=== PATIENT | female | born 1990 | race African-American/Black ===

== ENCOUNTER 2021-05-11 18:48 | Emergency (ER) | payer OTHER, SELFPAY ==
[2021-05-11 18:54] VITALS: BP 117/74; PULSE 102; RESP 16; TEMP 35.7; O2SAT 100
--- NOTE | 2021-05-11 23:24 | PC.NURSE ---
no answer for room.
== END 2021-05-11 23:45 | disposition left against medical advice (07) ==
DX: Z53.21 Procedure and treatment not carried out due to patient leaving prior to being seen by health care provider (principal)
CPT/HCPCS: 99199

== ENCOUNTER 2025-02-02 15:07 | Emergency (ER) | payer BC, SELFPAY ==
--- OUTSIDE RECORDS SUMMARY | 2025-02-02 15:17 | XMS_ITS | Clinical Summary ---
Author Organization [facility] [employer] Address [address] [place] [address] Care Team Providers Care Well Tender Name Role Phone Fortunato Pires MD Primary Care Provider Un available Source Comments [facility] [employer],non-owned Affiliates and Associated Physician Practices is amultiple site organization consisting of ambulatory clinics and hospital sitesin [place], [place] and [place]. This disclosure is being madepursuant to the Care Everywhere program and may not contain all information available regarding this patient. Last updated 18.[employer] [facility] Allergies No known active allergies Medications * Be aware that medications may not be up to date on this document. Alwaysverify current medications with the patient. ferrous sulfate 325 (65 FE) MG tabletIndicati ons:Iron Deficiency Anemia Take 325 mg by mouth once daily Reasons: Anemia From Inadequate Iron in the Body Active Vit-Fe Fumarate-FA ( VITAMIN) 28-0.8 MG tabletIndicati ons: Take 1 tablet by mouth once daily Reasons: Active polyethylene glycol 3350 (MIRALAX) 17 GM/SCOOP powder MIX 1 CAPFUL IN 8 OUNCES OF WATER AND DRINK DAILY NEEDED FOR CONSTIPATION 0 Active acetaminophen (TYLENOL) 325 MG tablet Take 2 (two) tablets by mouth every 6 hours as needed Maximum allowable Acetaminophen amount = 4 Grams (4000 mg) / 24 hours. 60 tablet 1 Active ibuprofen (MOTRIN) 600 MG tablet Take 1 (one) tablet by mouth every 6 hours 60 tablet 1 Active tiZANidine (ZANAFLEX) 4 MG tablet Take 1 (one) tablet by mouth every 8 hours as needed for Muscle Spasms 15 tablet 1 Active naproxen (NAPROSYN) 500 MG tablet Take 1 (one) tablet by mouth 2 times daily 30 tablet 1 Active Active Problems Problem Noted Date Diagnosed Date Iron deficiency anemia 08/04/2020 Fifth 04/05/2020 Encounter for ultrasound 04/05/2020 Hx of section 04/05/2020 Hx of preeclampsia, prior pr egnancy, currently , unspecified trimester 04/05/2020 Sickle cell trait 04/05/2020 Hx of ectopic 04/05/2020 Immunizations Immunization Administration Dates Next Due MMR 08/26/2020(Deferred: See Comment s - patient is [place] immune) TDAP (7yrs+) 08/26/2020(),06/15/2020 Family History Medical History Relation Name Comments Cancer - Breast Father Asthma Maternal Grandmother Diabetes - Type 1 Maternal Grandmother Relation Name Status Comments Brother Alive Father Alive Maternal Grandfather Maternal Grandmother Alive Mother Alive Paternal Grandfather Paternal Grandmother Social History Tobacco Use Types Packs/Day Years Used Date Smoking Tobacco: Never Smokeless Tobacco: Never Tobacco Cessation:Counseling Given: No Alcohol Use Standard Drinks/Week Comments Not Currently 0 (1 standard drink = 0.6 oz pur e alcohol) Comments No Sex and Gender Information Value Date Recorded Sex Assigned at Not on file Legal Sex 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 Gender Identity Not on file Sexual Orientation Not on file Last Filed Vital Signs Vital Sign Reading Time Taken Comments Blood Pressure 120/65 05/21/2021 1:43 AM TELECOMMUNICATION EQUIPMENT REPAIRER Pulse 87 05/21/2021 1:43 AM TELECOMMUNICATION EQUIPMENT REPAIRER Temperature 36.7 C (98.1 F) 05/21/2021 12:26 AM TELECOMMUNICATION EQUIPMENT REPAIRER Respiratory Rate 18 05/21/2021 1:43 AM TELECOMMUNICATION EQUIPMENT REPAIRER Oxygen Saturation 100% 05/21/2021 1:43 AM TELECOMMUNICATION EQUIPMENT REPAIRER Inhaled Oxygen Concentration - - Weight 93.4 kg (206 lb) 05/21/2021 12:29 AM TELECOMMUNICATION EQUIPMENT REPAIRER Height 167.6 cm (5' 6) 05/21/2021 12:29 AM TELECOMMUNICATION EQUIPMENT REPAIRER Body Mass Index 33.25 05/21/2021 12:29 AM TELECOMMUNICATION EQUIPMENT REPAIRER Plan of Treatment Health Maintenance Due Date Last Done Comments HIV SCREENING 01/07/2003 HEPATITIS C SCREENING 01/03/2006 HEPATITIS B VACCINE (1 of 3 - 19+ 3-dose series) 01/07/2007 HPV VACCINE (1 - 3-dose SCDM series) 01/07/2015 DEPRESSION SCREENING 06/03/2024 COVID-19 VACCINE (1 - 2023-2 5 season) 2025 INFLUENZA VACCINE (#1) 2025 03/03/2019 DTAP/TDAP/TD VACCINES (2 - T d or Tdap) 06/15/2030 06/15/2020 ZOSTER VACCINE (1 of 2) 01/07/2038 HIB VACCINE Aged Out No longer eligi ble based on patient's age to complete this topic MENINGOCOCCAL (Group B) VACC INE SHARED DECISION-MAKING Aged Out No longer eligibl e based on patient's age to complete this topic MENINGOCOCCAL GROUPS A/C/Y/W VACCINE Aged Out No longer eligible b ased on patient's age to complete this topic PNEUMOCOCCAL VACCINE Aged Out No long er eligible based on patient's age to complete this topic Insurance MEDICAID [employer] [place] THIRD [employer]AT LIABILITY MEDICAID [employer] [place] Advance Directives * Full Code (Latest Code Status on File) Date Activated Date Inactivated Comments 08/24/2020 6:04 AM 08/27/2020 7:17 PM * Full Code Date Activated Date Inactivated Comments 08/24/2020 5:25 AM 08/24/2020 6:04 AM Care Teams Well Tender Relationship Specialty Start Date End Date Fortunato Pires MD PCP - General Internal Medicine 05/21/21
[2025-02-02 15:22] VITALS: BP 172/80; PULSE 72; RESP 16; TEMP 36.6; O2SAT 100
--- NOTE | 2025-02-02 16:10 | PC.NURSE ---
PT TO DESK, C/O VAGINAL BLEEDING. ASKED FOR AND RECEIVED PADS, TOWELS AND MESH UNDERWEAR
--- NOTE | 2025-02-02 17:02 | ED.ABDPAIN ---
HPI - Abdominal Pain General Chief Complaint: Abdominal Pain Stated Complaint: abd pain Time Seen by Provider: 02/02/25 17:03 Focused HPI: Patient is a 35 y/o female who presents to the ED with c/o lower abdominal pain. Patient reports having significant pain throughout her lower abdomen since this morning. States she started her normal menstrual cycle a few days ago but it has been heavier than normal. States she has been soaking through pads/tampons and passing large blood clots which is not normal for her. Reports N/V, fever of 103.8F this afternoon. Did not take anything for the fever. Was afebrile upon arrival to the ED. Has not taken anything for pain. Denies diarrhea, constipation, dysuria. GENERAL: Mildly uncomfortable-appearing, well-nourished, and in no acute distress. HEAD: Normocephalic, atraumatic. CHEST: Clear to auscultation. ?No respiratory distress. HEART: Regular rate and rhythm.? ABD: Mild diffuse tenderness throughout lower abdomen, no rebound NEURO: ?Alert and oriented x3. Patient screened in triage and initial orders placed.? ?Additional care and disposition to be based upon?diagnostic testing and treatment. Source: patient Mode of arrival: ambulatory Limitations: no limitations Related Data Allergies Allergy/AdvReac Type Severity Reaction Status Date / Time No Known Allergies Allergy Unknown Verified 12/09/24 13:48 PMFSH Surgical History Surgical History History of section X2 (2004) (2008) Family History Family History Father Cancer Grandparent Diabetes mellitus Hypertension Cancer Social History Social History Smoking status: Never smoker Course Vital Signs Vital signs: Vital Signs Temperature 97.8 F 02/02/25 15:22 Pulse Rate 72 02/02/25 15:22 Respiratory Rate 16 02/02/25 15:22 Blood Pressure 172/80 H 02/02/25 15:22 Pulse Oximetry 100 02/02/25 15:22 Oxygen Delivery Room Air 02/02/25 15:22 Temperature 97.8 F 02/02/25 15:22 Pulse Rate 72 02/02/25 15:22 Respiratory Rate 16 02/02/25 15:22 Blood Pressure 172/80 H 02/02/25 15:22 Pulse Oximetry 100 02/02/25 15:22 Oxygen Delivery Room Air 02/02/25 15:22 MDM - Abdominal Pain MDM Narrative Medical decision making narrative: MSE by POLY in triage. Patient left the facility after initial MSE in triage before further workup or care. Discharge Plan Discharge Clinical Impression: Bilateral lower abdominal pain, Abnormal vaginal bleeding Patient Disposition: Elopement After Seen by Prov Instructions: Antibiotic Form Patient Language: Luxembourgish Prescriptions: No Action sertraline [Zoloft] 50 mg tablet 50 mg PO DAILY Qty: 90 0RF ferrous sulfate 325 mg (65 mg iron) tablet 325 mg PO DAILY Qty: 90 0RF Follow-up/Referrals: Armida Oleary APRN [Primary Care Provider, Internal Medicine]
--- NOTE | 2025-02-02 18:39 | PC.NURSE ---
PT lwbs, unwilling to wait longer.
--- OUTSIDE RECORDS SUMMARY | 2025-02-02 19:14 | XMS_ITS | Clinical Summary ---
Author Organization [facility] [employer] Address [address] [place] [address] Care Team Providers Care Investor Relations Associate Name Role Phone Fortunato Pires MD Primary Care Provider Un available Source Comments [facility] [employer],non-owned Affiliates and Associated Physician Practices is amultiple site organization consisting of ambulatory clinics and hospital sitesin [place], [place], [place] and [place]. This disclosure is being madepursuant to the Care Everywhere program and may not contain all information available regarding this patient. 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 Gender Identity Not on file Sexual Orientation Not on file Last Filed Vital Signs Vital Sign Reading Time Taken Comments Blood Pressure 120/65 05/21/2021 1:43 AM ROCKET TEST FIRE WORKER Pulse 87 05/21/2021 1:43 AM ROCKET TEST FIRE WORKER Temperature 36.7 C (98.1 F) 05/21/2021 12:26 AM ROCKET TEST FIRE WORKER Respiratory Rate 18 05/21/2021 1:43 AM ROCKET TEST FIRE WORKER Oxygen Saturation 100% 05/21/2021 1:43 AM ROCKET TEST FIRE WORKER Inhaled Oxygen Concentration - - Weight 93.4 kg (206 lb) 05/21/2021 12:29 AM ROCKET TEST FIRE WORKER Height 167.6 cm (5' 6) 05/21/2021 12:29 AM ROCKET TEST FIRE WORKER Body Mass Index 33.25 05/21/2021 12:29 AM ROCKET TEST FIRE WORKER Plan of Treatment Health Maintenance Due Date [...] MEDICAID [employer] [place] TH[employer] LIABILITY MEDICAID [employer] [place] Advance Directives * Full Code (Latest Code Status on File) Date Activated Date Inactivated Comments 08/24/2020 6:04 AM 08/27/2020 7:17 PM * Full Code Date Activated Date Inactivated Comments 08/24/2020 5:25 AM 08/24/2020 6:04 AM Care Teams Investor Relations Associate Relationship Specialty Start Date End Date Fortunato Pires MD PCP - General Internal Medicine 05/21/21
== END 2025-02-02 18:39 | disposition left against medical advice (07) ==
PROVIDERS: Emergency Provider Emergency Medicine; PCP Nurse Practitioner Family
DX: R10.32 Left lower quadrant pain (principal); R10.31 Right lower quadrant pain; N93.9 Abnormal uterine and vaginal bleeding, unspecified
CPT/HCPCS: 99281